=== PATIENT | female | born 1995 | race Caucasian/White ===

== ENCOUNTER 2019-06-03 10:32 | Emergency (ER) | payer BC ==
[2019-06-03 10:42] VITALS: BP 120/76
--- NOTE | 2019-06-03 10:52 | UC ---
Throat Pain/Nasal Nael HPI - HPI Summary HPI Summary: Head Congested for 2-3 days. C/o dizziness and feeling foggy and unbalanced. - History of Current Complaint Chief Complaint: UCGeneralIllness Stated Complaint: CONGESTION,DIZZY, "FOGGY" Time Seen by Provider: 06/03/19 10:50 Hx Obtained From: Patient Hx Last Menstrual Period: 2 weeks ago Onset/Duration: Sudden Onset, Lasting Days Severity: Mild Pain Intensity: 0 Associated Signs & Symptoms: Positive: Sinus Discomfort, Nasal Discharge - Allergies/Home Medications Allergies/Adverse Reactions: Allergies Allergy/AdvReac Type Severity Reaction Status Date / Time amoxicillin Allergy GI Upset Verified 06/03/19 10:43 PMH/Surg Hx/FS Hx/Imm Hx Previously Healthy: Yes - Surgical History Surgical History: None - Family History Known Family History: Positive: None Negative: Cardiac Disease, Hypertension - Social History Alcohol Use: None Substance Use Type: None Smoking Status (MU): Never Smoked Tobacco Have You Smoked in the Last Year: No - Immunization History Vaccination Up to Date: Yes Review of Systems All Other Systems Reviewed And Are Negative: Yes ENT: Positive: Nasal Discharge, Sinus Congestion Neurological: Positive: Other - dizzyness Physical Exam Triage Information Reviewed: Yes Appearance: No Pain Distress, Well-Nourished, Ill-Appearing Vital Signs: Initial Vital Signs Temp 98.3 F 06/03/19 10:39 Pulse 76 06/03/19 10:39 Resp 15 06/03/19 10:39 BP 120/76 06/03/19 10:39 Pulse Ox 100 06/03/19 10:39 Vital Signs Reviewed: Yes Eye Exam: Normal ENT: Positive: Pharyngeal erythema - with PND, Nasal congestion, Nasal drainage , TM bulging - bilateral with serous otitis bilateral Dental Exam: Normal Neck exam: Normal Respiratory Exam: Normal Respiratory: Positive: Chest non-tender, Lungs clear, Normal breath sounds Cardiovascular Exam: Normal Cardiovascular: Positive: RRR, No Murmur Abdominal Exam: Normal Bowel Sounds: Positive: Present Musculoskeletal Exam: Normal Neurological Exam: Normal Psychological Exam: Normal Skin Exam: Normal Throat Pain/Nasal Course/Dx - Course Course Of Treatment: hx obtained, exam performed, meds reviewed, educated on self care of sinus congestion - Differential Dx/Diagnosis Differential Diagnosis/HQI/PQRI: Otitis Media, Pharyngitis, Sinusitis, URI Provider Diagnosis: Rhinosinusitis Discharge - Sign-Out/Discharge Documenting (check all that apply): Patient Departure All imaging exams completed and their final reports reviewed: No Studies - Discharge Plan Condition: Stable Disposition: HOME Patient Education Materials: Rhinosinusitis (ED) Referrals: Richelle Lovelace MD [Primary Care Provider] - Additional Instructions: 1. increase fluids 2. Salt water gargles if sore throat, it will help remove the mucous from the back of the throat 3. Daily antihistamine for the next 2-3 weeks 4. OTHER: daily tbs. of local honey for the next 9-12 months will help with seasonal allergies 5. VICKS, HOT PACKS to THROAT, REST 6. Follow up as needed. - Billing Disposition and Condition Condition: STABLE Disposition: Home
== END 2019-06-03 11:16 | disposition home or self-care (01) ==
LOC: UCCORT 10:32
DX: J32.9 Chronic sinusitis, unspecified (principal); Z88.0 Allergy status to penicillin
CPT/HCPCS: 99211; G0463

== ENCOUNTER 2019-06-10 07:21 | Emergency (ER) | payer BC ==
--- OUTSIDE RECORDS SUMMARY | 2019-06-10 07:30 | XMS REPORT | Continuity of Care Document ---
:1995 External Reference #:[id number] Author Name Beto Sierra MD Address [address] [place] [address] Care Team Providers Name Role Phone Richelle Szymanski M.D. Care Team Information Surgical Consultant Unavailable Richelle Szymanski M.D. Primary Care Physician Unavailable Payers Date Identification Numbers Payment Provider Subscriber Effective: Policy Number: [id number] [facility] Monique Case 2019 [place] PayID: [id number] 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 Tobacco Use Start: Unknown Never Smoked Cigarettes Tobacco Use Start: Unknown Never Smoked Cigars Tobacco Use Start: Unknown Never Smoked A Pipe Smokeless Tobacco Never Used Smokeless Tobacco ETOH Use Denies alcohol use Tobacco Use Start: Unknown Patient has never smoked Smoking Status Reviewed: 06/08/19 Patient has never smoked Allergies, Adverse Reactions, Alerts Active Allergies Reaction Severity Comments Date Amoxicillin 06/08/2019 Latex 06/08/2019 Zithromax 06/08/2019 Medications Active Medications SIG Qnty Indications Ordering Provider Date Womens One Daily 1 by mouth every Unknown Tablets day Calcium 600 1 by mouth twice Unknown 600mg Tablets a day Control Pills 1 by mouth every Unknown day UTI Antibiotic prn Unknown Vital Signs Date Vital Result Comment 06/08/2019 9:16am Weight 124.00 lb Weight 56.246 kg Height 66 inches 5'6" Height in cm's 167.6 cm BMI (Body Mass Index) 20.0 kg/m2 Procedures Date Code Description Status 06/08/2019 45474 Fiberoptic Laryngoscopy Completed Encounters Type Date Location Provider Dx Diagnosis Office Visit 06/08/2019 Dodie,Robert Grimes 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
[2019-06-10 07:37] VITALS: BP 116/76
--- NOTE | 2019-06-10 07:56 | UC ---
Ear Complaint HPI - HPI Summary HPI Summary: 24-year-old woman comes in with a chief complaint of left ear pain. Patient has had upper respiratory tract infection symptoms for 10-11 days. She has been trying Claritin. Her rhinorrhea has turned yellow. This morning she woke up with a severe left ear pain. She took some acetaminophen which did not help. No fevers. Hearing is decreased in the left ear. Patient is not a smoker. - History of Current Complaint Chief Complaint: UCEar Stated Complaint: LEFT EAR PAIN Time Seen by Provider: 06/10/19 07:44 Hx Last Menstrual Period: ~05/20/19 Pain Intensity: 8 - Allergies/Home Medications Allergies/Adverse Reactions: Allergies Allergy/AdvReac Type Severity Reaction Status Date / Time amoxicillin AdvReac GI Upset Verified 06/10/19 07:32 azithromycin AdvReac Vomiting Verified 06/10/19 07:32 Home Medications: Home Medications Acetaminophen TAB* [Tylenol TAB*] 650 mg PO Q4H PRN 06/10/19 [History Confirmed 06/10/19] LoraTADine TAB(NF) [Claritin 10 MG TAB(NF)] 10 mg PO DAILY 06/10/19 [History Confirmed 06/10/19] Norethindrone-E.estradiol-Iron [Tri-Legest Fe] 1 tab PO DAILY 06/10/19 [History Confirmed 06/10/19] PMH/Surg Hx/FS Hx/Imm Hx Previously Healthy: Yes - Surgical History Surgical History: None - Family History Known Family History: Positive: None Negative: Cardiac Disease, Hypertension - Social History Alcohol Use: None Substance Use Type: None Smoking Status (MU): Never Smoked Tobacco Have You Smoked in the Last Year: No - Immunization History Vaccination Up to Date: Yes Review of Systems All Other Systems Reviewed And Are Negative: Yes Constitutional: Positive: Negative Skin: Positive: Negative Eyes: Positive: Negative ENT: Positive: Ear Ache, Nasal Discharge, Sinus Congestion, Sinus Pain/ Tenderness Respiratory: Positive: Negative Cardiovascular: Positive: Negative Gastrointestinal: Positive: Negative Motor: Positive: Negative Neurovascular: Positive: Negative Musculoskeletal: Positive: Negative Neurological: Positive: Negative Psychological: Positive: Negative Is Patient Immunocompromised?: No Physical Exam Triage Information Reviewed: Yes Appearance: Well-Nourished, Ill-Appearing - MILD Vital Signs: Initial Vital Signs Temp 98 F 06/10/19 07:31 Pulse 84 06/10/19 07:31 Resp 16 06/10/19 07:31 BP 116/76 06/10/19 07:31 Pulse Ox 98 06/10/19 07:31 Vital Signs Reviewed: Yes Eye Exam: Normal Eyes: Positive: Conjunctiva Clear ENT: Positive: Pharyngeal erythema, Nasal congestion, Nasal drainage, TM bulging - LEFT, TM red - LEFT, Other - LEFT TRAGUS TENDER TO PALPATION. LEFT EAR CANAL ERYTHEMATOUS. Neck: Positive: Supple Respiratory: Positive: Lungs clear, Normal breath sounds, No respiratory distress Cardiovascular: Positive: RRR Musculoskeletal: Positive: Strength Intact, ROM Intact Neurological Exam: Normal Neurological: Positive: Alert, Muscle Tone Normal Psychological Exam: Normal Psychological: Positive: Age Appropriate Behavior Skin Exam: Normal Ear Complaint Course/Dx - Differential Dx/Diagnosis Provider Diagnosis: Left otitis media, Left otitis externa, Sinusitis Discharge - Sign-Out/Discharge Documenting (check all that apply): Patient Departure All imaging exams completed and their final reports reviewed: No Studies - Discharge Plan Condition: Stable Disposition: HOME Prescriptions: Cefdinir [Cefdinir 300 MG CAP] 300 mg PO BID #20 cap Fluticasone NASAL SPRAY 50MCG* [Flonase NASAL SPRAY 50MCG*] 2 spray BOTH NARES DAILY #1 btl Ofloxacin 0.3% (Ear Drop)* [Floxin 0.3% OTIC.NOHEMI (Ear Drop)] 5 drop LEFT EAR BID #1 btl Patient Education Materials: Sinusitis (ED), Otitis Externa (ED), Ear Infection (ED) Forms: *Work Release Referrals: Richelle Lovelace MD [Primary Care Provider] - Additional Instructions: FOLLOW UP WITH YOUR DOCTOR IF NOT COMPLETELY IMPROVED. GET REEVALUATED SOONER IF WORSE OR ANY QUESTIONS OR CONCERNS. - Billing Disposition and Condition Condition: STABLE Disposition: Home
== END 2019-06-10 08:03 | disposition home or self-care (01) ==
LOC: UCCORT 07:21
DX: H66.92 Otitis media, unspecified, left ear (principal); H60.92 Unspecified otitis externa, left ear; J32.9 Chronic sinusitis, unspecified; Z88.0 Allergy status to penicillin; Z88.1 Allergy status to other antibiotic agents
CPT/HCPCS: 99212; G0463

== ENCOUNTER 2019-06-15 11:50 | Emergency (ER) | payer BC ==
--- NOTE | 2019-06-15 12:24 | UC ---
Ear Complaint HPI - HPI Summary HPI Summary: 24 y/o female presents to the urgent care requesting a RE-check in her otitis media. Pt reports adina was seen here at the clinic on 06/10/2019 and Dx w/ left otitis Media and externa and Rx Cefdinir and ofloxacin. She still taking her oral antibiotic. She finished the otic drops about 2 day ago and yesterday b/L ear pain returned. Pain is mild 2/10 associated nasal congestion w/ moderate PND clear and persistent dry cough. Pt denies fever, SOB, chest pain, abdominal pain, N/V/D. She states she saw DR Sierra about 2 weeks ago for her throat nodules and her ear were fine. - History of Current Complaint Stated Complaint: RECHECK - EAR ACHE Time Seen by Provider: 06/15/19 12:24 Hx Obtained From: Patient Hx Last Menstrual Period: ~05/20/19 ?: No Onset/Duration: Gradual Onset, Lasting Weeks - 2 weeks, Still Present Severity Initially: Mild Severity Currently: Mild Pain Intensity: 2 - B/L ear pain Pain Scale Used: 0-10 Numeric Aggravating Factors: Nothing Alleviating Factors: Other (Noted In Comments) - Pt Rx Cefdinir PO and ofloxacin otic drops here at the clinic on 06/10/2019 for left otitis media and externa. Pt still taking antibitics and otic drops already finished Associated Signs/Symptoms: Positive: URI Symptoms Related History: Seasonal Allergies - Allergies/Home Medications Allergies/Adverse Reactions: Allergies Allergy/AdvReac Type Severity Reaction Status Date / Time amoxicillin AdvReac GI Upset Verified 06/10/19 07:32 azithromycin AdvReac Vomiting Verified 06/10/19 07:32 Home Medications: Home Medications Ibuprofen 800 mg PO SEE INSTRUCTIONS PRN 06/15/19 [History Confirmed 06/15/19] PMH/Surg Hx/FS Hx/Imm Hx Previously Healthy: Yes - Pt denies PMHX - Surgical History Surgical History: None - Family History Known Family History: Positive: None - Pt denies FMHX Negative: Cardiac Disease, Hypertension - Social History Occupation: Employed Full-time Lives: With Family Alcohol Use: None Substance Use Type: None Smoking Status (MU): Never Smoked Tobacco Have You Smoked in the Last Year: No - Immunization History Vaccination Up to Date: Yes Review of Systems All Other Systems Reviewed And Are Negative: Yes Constitutional: Positive: Negative Skin: Positive: Negative Eyes: Positive: Negative ENT: Positive: Ear Ache - B/L ear pain, Sinus Congestion - getting better, Other - PND clear Respiratory: Positive: Cough - dry Cardiovascular: Positive: Negative Gastrointestinal: Positive: Negative Genitourinary: Positive: Negative Motor: Positive: Negative Neurovascular: Positive: Negative Musculoskeletal: Positive: Negative Neurological: Positive: Negative Psychological: Positive: Negative Is Patient Immunocompromised?: No Physical Exam - Summary Physical Exam Summary: Vital signs: reviewed General: well developed, well nourished female sitting in the examining table w/ o any apparent distress Skin: [place], warm and dry, no evidence of atopic dermatitis, psoriasis, seborrhea. HEENT: -Head: atraumatic, non tender; no scalp dermatitis. -Eyes: sclera and conjunctiva clear, PERRLA, EOMI -Ears: no pre- or postauricular lymphadenopathy or erythema;B/L external ear canal clears, Rt TM WNL, LF TM w/ mild erythema, no fluid , mild bulging TM no perforation. -Nose/Face: erythematous and edematous nasal mucosa with clear rhinorrhea, no frontal or maxillary sinus tender to palpation. -Mouth/Throat: Mucous membrane moist, posterior pharynx clear, no erythema or exudates. Neck: supple, FROM, nontender, no lymphadenopathy, no meningismus. Chest: Clear to auscultation, normal breath sounds Abd: soft, Bowel sounds active, Nontender. Back: no spinal or CVAT Neuro: A&O x4, GCS 15, no focal neuro deficits, normal behavior for age. Triage Information Reviewed: Yes Ear Complaint Course/Dx - Course Course Of Treatment: 24 y/o female presents to the urgent care requesting a RE-check in her otitis media. Pt reports adina was seen here at the clinic on 06/10/2019 and Dx w/ left otitis Media and externa and Rx Cefdinir and ofloxacin. She still taking her oral antibiotic. She finished the otic drops about 2 day ago and yesterday b/L ear pain returned. Pain is mild 2/10 associated nasal congestion w/ moderate PND clear and persistent dry cough. Pt denies fever, SOB, chest pain, abdominal pain, N/V/D. She states she saw DR Sierra about 2 weeks ago for her throat nodules and her ear were fine. Hx obtained.Pt w still w/ mild otitis media on examination. It think it is resolving now. Pt advised to continue taking Cefdinir, flonasa nasal spray. Advise to use saline drops to clear sinuses and Rx Tessalon tabs to alleviate cough. Strongly advised if symptoms do not improve or worsen to f/u w/ her ENT DR Sierra for further management. D/ c instructions explaiend. Pt understood and agreed with D/C w/ plan of care. - Differential Dx/Diagnosis Differential Diagnosis/HQI/PQRI: Cerumen Impaction, Otitis Externa, Otitis Media , Perforated TM, URI Provider Diagnosis: Left otitis media, Cough Discharge - Sign-Out/Discharge Documenting (check all that apply): Patient Departure - D/c home All imaging exams completed and their final reports reviewed: No Studies - Discharge Plan Condition: Stable Disposition: HOME Prescriptions: Benzonatate CAP* [Tessalon 100 MG CAP*] 100 mg PO TID #21 cap Patient Education Materials: Ear Infection (ED) Referrals: Richelle Lovelace MD [Primary Care Provider] - 3 Days Additional Instructions: 1- Please continue taking Cefdinir PO as directed full course of the antibiotic to avoid resistance.Take yogurts w/ probiotics or Culturelle to protect your GI system 2-Continue using Flonase nasal spray as directed to help drain fluid. Also buy saline drops to clear sinuses 3-Continue taking Claritin PO to alleviates sinus congestion. Take Tessalon PO as directed to alleviate cough 4-Please take ibuprofen PO q6-8hrs prn as instructed after meals to alleviate pain and swelling. Increase fluid intake, eat well, rest and avoid strenuous exercise 5-Stop using the Ofloxacin otic drops since esterna ear infection has resolved. 6-Please f/u w/ your PCP in 3 days if symptoms do not improve for further management and treatment - Billing Disposition and Condition Condition: STABLE Disposition: Home
[2019-06-15 12:58] VITALS: BP 107/70
== END 2019-06-15 13:41 | disposition home or self-care (01) ==
LOC: UCCORT 11:50
DX: Z51.89 Encounter for other specified aftercare (principal); H66.92 Otitis media, unspecified, left ear; R05 Cough; Z88.1 Allergy status to other antibiotic agents; Z88.0 Allergy status to penicillin
CPT/HCPCS: 99211; G0463